=== PATIENT | male | born 1980 | race Native Hawaiian/Other Pacific Islander ===

== ENCOUNTER 2022-09-16 15:13 | Emergency (ER) | payer OTHER ==
[~2022-09-16] VITALS: Ht 182.9 cm; Wt 94.3 kg
[2022-09-16 15:28] VITALS: BP 127/93; TEMP 98.1
[2022-09-16 15:55] LABS: PLATELET COUNT 245 K/uL (142-355)
[2022-09-16 16:00] LABS: POTASSIUM 4.2 mmol/L (3.6-5.2)
== END 2022-09-16 18:03 | disposition home or self-care (01) ==
LOC: ED 15:13
PROVIDERS: Family Medicine
DX: S46.011A Strain of muscle(s) and tendon(s) of the rotator cuff of right shoulder, initial encounter (principal); X58.XXXA Exposure to other specified factors, initial encounter
CPT/HCPCS: 80053; 82550; 85027; 86140; 96372; 99283; J1885; J2930